=== PATIENT | female | born 1950 | race Caucasian/White ===

== ENCOUNTER → 2025-01-23 | Outpatient (CLI) | payer MEDICARE, SELFPAY ==
[2025-01-23 14:38] LABS: Anion Gap 10 (5-15); BUN 23 mg/dL (4-19); BUN/Creat Ratio 24.9 RATIO (10-20); Calcium,Total 8.7 mg/dL (7.6-11.0); Carbon Dioxide 22.8 mmol/L (21.0-32.0); Chloride 105 mmol/L (98-108); Glucose 148 mg/dL (70-99); Potassium 4.2 mmol/L (3.3-5.1)
== END | disposition home or self-care (01) ==
LOC: MTLAB 11:09
PROVIDERS: PCP Family Medicine; Referring Provider Urology; Visit Provider Urology
DX: R93.89 Abnormal findings on diagnostic imaging of other specified body structures (principal)
CPT/HCPCS: 36415; 80048

== ENCOUNTER → 2025-02-13 | Outpatient (CLI) | payer MEDICARE, SELFPAY ==
--- NOTE | 2025-02-13 07:44 | CT_ITS ---
PROCEDURE: CT ABD/PELVIS W/WO CONTRAST 02/13/2025 REASON FOR EXAM: ABNORMAL FINDINGS ON MRI AND ULTRASOUND LEFT RENAL TECHNIQUE: Procedure Code: [id number] Modality: CT Procedure: CT ABD/PELVIS W/WO CONTRAST Coronal and Sagittal reconstruction series were provided. CONTRAST: Isovue 370 VOLUME: 100 mL One or more dose reduction techniques were used (e.g., Automated exposure control, adjustment of the mA and/or kV according to patient size, use of iterative reconstruction technique. RADIATION DOSE SUMMARY: CTDlvol: 60 mGy DLP: 1783.6 mGycm COMPARISON: None. Patient reportedly has had an ultrasound and MR. These are not currently available. FINDINGS: Lung bases: Mild emphysematous changes. ABDOMEN Liver: Negative. Biliary system: Mildly prominent common bile duct and intrahepatic ducts. Maximal dimension 9 mm of the common hepatic duct. No choledocholithiasis or obstructing mass. Gallbladder: Removed . Spleen: Negative. Pancreas: Mild diffuse pancreatic atrophy. Negative for mass Adrenals: Left adrenal adenoma with Hounsfield measurement of less than 10 on noncontrast exam measures 2.3 by 1.4 cm. Right adrenal adenoma measures 2.1 x 1.2 cm and has a Hounsfield measurement of less than 10 as well. No concerning masses. Kidneys: Left-sided parapelvic simple cysts noted. No mass. Slight bilateral cortical thinning. Major of the kidneys negative. No stones. Imaged ureters negative. Bowel: Moderate increased stool throughout the colon. Scattered diverticulosis. Particularly of the sigmoid colon with no active diverticulitis. Negative for small or large-bowel obstruction. Appendix: The appendix is not identified. There is no inflammatory process identified in the right lower quadrant to suggest appendicitis. Vasculature: Moderate atherosclerotic vascular calcifications of the abdominal aorta and its branches. Peritoneum / Retroperitoneum: Negative. PELVIS Lymph nodes: Negative for inguinal or iliac adenopathy. Bladder: Urinary bladder negative Reproductive Organs: Uterus negative Bones and Soft Tissues: Degenerative changes particularly at L4-5 with anterolisthesis of L4 respect to L5 with degenerative disc disease from L3-S1. CT/CT Abd/Pelvis W/WO Contrast IMPRESSION: Left parapelvic cysts likely correlate to area of concern on outside MR and ult rasound. No concerning renal masses. Negative for kidney stones. Bilateral adrenal adenomas. Negative for acute intra-abdominal or pelvic pathology. Reading Location: [place] [id number]
== END | disposition home or self-care (01) ==
LOC: CT 07:42
PROVIDERS: PCP Family Medicine; Referring Provider Urology; Visit Provider Urology
DX: R93.89 Abnormal findings on diagnostic imaging of other specified body structures (principal)
CPT/HCPCS: 74178; Q9967